=== PATIENT | male | born 1970 | race Caucasian/White ===

== ENCOUNTER 2017-02-15 20:28 | Emergency (ER) | payer OTHER ==
[~2017-02-15] VITALS: Ht 167.6 cm; Wt 90.0 kg
[~2017-02-15 20:28] MED LIST: AMOXICILLIN500 MG PO; AUGMENTIN875 MG PO; IBUPROFEN600 MG PO; LEVAQUIN500 MG PO; MEDROL DOSEPAK4 MG PO; MOTRIN800 MG PO; NAPROSYN500 MG PO; NORCO 7.5/321 TABLET PO; PERCOCET 5/31 TABLET PO; PRILOSEC10 MG PO; TYLENOL WITH C1 EACH PO; ULTRAM50 MG PO; ZANTAC150 MG PO
[2017-02-15] MEDS ORDERED: NORCO 5/3251 TABLET PO (21:18)
[2017-02-15] MEDS ORDERED: CEFTIN250 MG PO (21:18)
[2017-02-15 21:43] VITALS: BP 182/96
== END 2017-02-15 21:44 | disposition home or self-care (01) ==
LOC: EME 20:28 → EXP 20:28
DX: J32.0 Chronic maxillary sinusitis (principal); K08.89 Other specified disorders of teeth and supporting structures; M79.7 Fibromyalgia; K21.9 Gastro-esophageal reflux disease without esophagitis
CPT/HCPCS: 99281; 99284

== ENCOUNTER 2017-02-16 09:22 | Emergency (ER) | payer OTHER ==
[~2017-02-16] VITALS: Ht 167.6 cm; Wt 89.6 kg
[~2017-02-16 09:22] MED LIST changes: +CEFTIN250 MG PO; +NORCO 5/3251 TABLET PO
[2017-02-16 12:49] VITALS: BP 173/87
== END 2017-02-16 12:50 | disposition home or self-care (01) ==
LOC: EME 09:22
DX: K04.7 Periapical abscess without sinus (principal); K02.9 Dental caries, unspecified; I10 Essential (primary) hypertension
CPT/HCPCS: 99281; 99283

== ENCOUNTER 2017-10-22 11:49 | Day surgery (SDC) | payer BC ==
[2017-10-22] MEDS ORDERED: RANITIDINE HCL150 MG PO (12:14)
[2017-10-22] MEDS ORDERED: LISINOPRIL20 MG PO (12:15)
[2017-10-22] MEDS ORDERED: TOPAMAX25 MG PO (12:17)
== END 2017-10-22 17:34 | disposition home or self-care (01) ==
LOC: CATH 11:49
DX: I25.10 Atherosclerotic heart disease of native coronary artery without angina pectoris (principal); I25.84 Coronary atherosclerosis due to calcified coronary lesion; I25.82 Chronic total occlusion of coronary artery; I10 Essential (primary) hypertension; K21.9 Gastro-esophageal reflux disease without esophagitis; R73.03 Prediabetes
CPT/HCPCS: C1769; C1887; J1644; J2250; J3010; J7040

== ENCOUNTER 2017-11-15 17:15 | Emergency (ER) | payer SELFPAY ==
[~2017-11-15] VITALS: Ht 167.6 cm; Wt 88.5 kg
[~2017-11-15 17:15] MED LIST changes: +LISINOPRIL20 MG PO; +RANITIDINE HCL150 MG PO; +TOPAMAX25 MG PO
[2017-11-15 18:29] LABS: HEMATOCRIT 28.6 % (38.0-50.0); MCH 30.5 PG (29.0-34.0); MCHC 34.3 G/DL (30.0-36.0); MCV 89.1 FL (86-99); PLATELET COUNT 349 K/uL (156-360); RBC DIS.WIDTH-CV 13.2 % (11.8-14.6); RBC DIS.WIDTH-SD 43.5 % (39-53); WHITE BLOOD COUNT 8.7 K/uL (4.1-10.2)
[2017-11-15 18:39] LABS: HEMOGLOBIN 9.8 G/DL (12.5-16.6); RED BLOOD COUNT 3.21 M/uL (4.00-5.50)
[2017-11-15 18:40] LABS: CHLORIDE 104 mEq/L (99-109); POTASSIUM 3.8 mEq/L (3.7-5.4); SODIUM 139 mEq/L (136-147)
[2017-11-15 18:42] LABS: GLUCOSE 131 mg/dL (70-99)
[2017-11-15 18:45] LABS: GFR ESTIMATE (CALCULATED) > 59 mL/min/ (58.99-99999)
[2017-11-15 18:46] LABS: UREA NITROGEN (BUN) 18 mg/dL (9-23)
[2017-11-15 18:54] LABS: TROP-I INTERPRETATION NEGATIVE; TROPONIN-I 0.03 ng/mL (0.0-0.30)
[2017-11-15] MEDS ORDERED: METHOCARBAMOL750 MG PO (19:26)
[2017-11-15] MEDS ORDERED: OXYCODONE HCL5 MG PO (19:27)
[2017-11-15 22:08] LABS: TROP-I INTERPRETATION NEGATIVE; TROPONIN-I 0.03 ng/mL (0.0-0.30)
[2017-11-15] MEDS ORDERED: KEFLEX500 MG PO (22:49)
[2017-11-15 23:49] VITALS: BP 138/72
== END 2017-11-15 23:53 | disposition home or self-care (01) ==
LOC: EME 17:15
PROVIDERS: Physician Assistant Medical
DX: R60.0 Localized edema (principal); I31.3 Pericardial effusion (noninflammatory); R06.02 Shortness of breath; Z95.1 Presence of aortocoronary bypass graft; Z98.890 Other specified postprocedural states; I10 Essential (primary) hypertension
CPT/HCPCS: 71046; 71275; 80048; 84484; 85027; 93005; 93971; 99281; 99284; J7030

== ENCOUNTER 2017-11-27 02:19 | Observation (INO) | payer OTHER ==
[~2017-11-27] VITALS: Ht 167.6 cm; Wt 90.9 kg
[~2017-11-27 02:19] MED LIST changes: +KEFLEX500 MG PO; +METHOCARBAMOL750 MG PO; +OXYCODONE HCL5 MG PO
[2017-11-27 03:02] LABS: HEMATOCRIT 33.1 % (38.0-50.0); HEMOGLOBIN 11.1 G/DL (12.5-16.6); MCH 29.7 PG (29.0-34.0); MCHC 33.5 G/DL (30.0-36.0); MCV 88.5 FL (86-99); PLATELET COUNT 375 K/uL (156-360); RBC DIS.WIDTH-CV 13.2 % (11.8-14.6); RBC DIS.WIDTH-SD 42.5 % (39-53); RED BLOOD COUNT 3.74 M/uL (4.00-5.50); WHITE BLOOD COUNT 9.9 K/uL (4.1-10.2)
[2017-11-27 03:13] LABS: CHLORIDE 101 mEq/L (99-109); POTASSIUM 4.4 mEq/L (3.7-5.4); SODIUM 137 mEq/L (136-147)
[2017-11-27 03:15] LABS: GLUCOSE 105 mg/dL (70-99); TOTAL PROTEIN 7.1 g/dL (6.4-8.3)
[2017-11-27 03:17] LABS: TOTAL BILIRUBIN 0.4 mg/dL (0.0-1.0)
[2017-11-27 03:19] LABS: ALKALINE PHOSPHATASE 102 IU/L (3-129); CREATININE 1.1 mg/dL (0.6-1.3); GFR ESTIMATE (CALCULATED) > 59 mL/min/ (58.99-99999)
[2017-11-27 03:20] LABS: UREA NITROGEN (BUN) 9 mg/dL (9-23)
[2017-11-27 03:21] LABS: AST (GOT) 13 IU/L (2-34)
[2017-11-27 03:22] LABS: ALT (GPT) 14 IU/L (3-49); LIPASE 21 U/L (1.0-51.0)
[2017-11-27 03:25] LABS: TROP-I INTERPRETATION NEGATIVE; TROPONIN-I 0.01 ng/mL (0.0-0.30)
[2017-11-27 05:56] VITALS: BP 116/69
[2017-11-27] MEDS ORDERED: LOPRESSOR25 MG PO (11:25)
[2017-11-27] MEDS ORDERED: ASPIRIN EC325 MG PO (11:25)
[2017-11-27 11:43] VITALS: BP 118/59
[2017-11-27 12:44] LABS: TROP-I INTERPRETATION NEGATIVE; TROPONIN-I < 0.01 ng/mL (0.0-0.30)
[2017-11-27 15:45] VITALS: BP 116/67
[2017-11-27 18:10] LABS: TROP-I INTERPRETATION NEGATIVE; TROPONIN-I < 0.01 ng/mL (0.0-0.30)
[2017-11-27] MEDS ORDERED: LIDODERM 5% P1 PATCH TD (19:27)
[2017-11-27 19:33] VITALS: BP 136/75
[2017-11-27 19:42] VITALS: BP 140/65
== END 2017-11-27 20:23 | disposition home or self-care (01) ==
LOC: EME 02:19 → EDOF 04:14 → 4SOUTH 04:14 → ENRESERV 04:18 → 4SOUTH 05:47
PROVIDERS: Emergency Medicine; Hospitalist
DX: R07.89 Other chest pain (principal); I25.10 Atherosclerotic heart disease of native coronary artery without angina pectoris; Z95.1 Presence of aortocoronary bypass graft; D64.9 Anemia, unspecified; Z82.49 Family history of ischemic heart disease and other diseases of the circulatory system; J90 Pleural effusion, not elsewhere classified; Z79.82 Long term (current) use of aspirin; M79.7 Fibromyalgia; I10 Essential (primary) hypertension; E78.5 Hyperlipidemia, unspecified
CPT/HCPCS: 71045; 71275; 80053; 82948; 83690; 83880; 84484; 85027; 85379; 93005; 99281; 99285; G0378; J1650; J3010

== ENCOUNTER → 2017-12-07 | Outpatient (CLI) | payer OTHER ==
[~2017-12-07] MED LIST changes: +ASPIRIN EC325 MG PO; +LIDODERM 5% P1 PATCH TD; +LOPRESSOR25 MG PO
== END | disposition home or self-care (01) ==
LOC: RAD 11:00 → EDSTATUS 11:00 → RAD 11:07
PROC: BB4BZZZ Ultrasonography of Pleura (ICD-10-PCS; principal; 2017-12-07)
DX: J90 Pleural effusion, not elsewhere classified (principal); Z95.1 Presence of aortocoronary bypass graft; Z53.09 Procedure and treatment not carried out because of other contraindication
CPT/HCPCS: 76604